=== PATIENT | female | born 1995 ===

== ENCOUNTER 2022-05-09 11:11 | Emergency (ER) | payer SELFPAY ==
[~2022-05-09] VITALS: Ht 172.7 cm; Wt 71.0 kg
[2022-05-09 11:41] VITALS: BP 128/90
== END 2022-05-09 12:02 ==
LOC: EMS 11:14
DX: T75.4XXA Electrocution, initial encounter (principal); W86.8XXA Exposure to other electric current, initial encounter; Y93.89 Activity, other specified; Y92.89 Other specified places as the place of occurrence of the external cause; Y99.8 Other external cause status
CPT/HCPCS: 99283